=== PATIENT | female | born 1960 | race Caucasian/White ===

== ENCOUNTER 2021-11-16 17:51 | Emergency (ER) | payer BC, SELFPAY ==
--- NOTE | ~2021-11-16 | CT_ITS ---
EXAMINATION: CT cervical spine wo con DATE: 11/16/2021 18:44 INDICATION: neck pain TECHNIQUE: Computed tomography (CT) of the cervical spine was performed without intravenous contrast. Automated exposure control and iterative reconstruction technique were employed. The dose-length pro duct was 395.07 mGy-cm. COMPARISON: None FINDINGS: Vertebral Body Alignment: Intact. Reversal of the normal cervical lordosis. Trace anterolisthesis of C3 on C4 and C7 on T1, presently on a degenerative basis. Craniocervical and atlantoaxial alignment: Moderate degenerative change. Alignment intact. Osseous structures/fracture: Uncomplicated appearing C5-C7 ACDF. No evidence of a lytic or blastic pr ocess in the visualized spine. No evidence of acute fracture. Cervical soft tissues: The paraspinal soft tissues planes are maintained. Degenerative changes: Severe degenerative disc disease at C4-5. Severe multilevel facet arthropathy. No severe central canal or neural foraminal narrowing. IMPRESSION: No acute fracture or traumatic malalignment in the cervical spine. Reviewed, dictated and finalized at location K.
[2021-11-16 17:54] VITALS: BP 155/95; PULSE 72; RESP 18; TEMP 36.9; O2SAT 98
--- NOTE | 2021-11-16 18:24 | ED.NECK ---
HPI - Neck Pain/Injury General Chief Complaint: Neck Pain/Injury Stated Complaint: fall, neck pain Time Seen by Provider: 11/16/21 17:57 History of Present Illness HPI Narrative: 61-year-old female presents to the emergency room for evaluation of neck injury. Patient states yesterday that she was in her garage and slipped on wet floor landing on her butt. Patient endorses pain to the right lateral neck, and is worse with movements. patient states when she landed whipped her neck backwards causing minimal pain. Patient states when she woke up this morning, she was unable to move her neck in any direction. Patient states that she asked her sister for soft c-collar to aid in immobilization. Patient states that she has taken 3 Aleve prior to arrival with no relief of symptoms. Patient does endorse a history of cervical neck fusion. Patient is demanding an MRI while here in the emergency room. Related Data Allergies Allergy/AdvReac Type Severity Reaction Status Date / Time No Known Allergies Allergy Unverified 10/11/17 12:55 Review of Systems Review of Systems: CONSTITUTIONAL: Denies fever, chills, or sweats. EYES: Denies visual changes, redness, or discharge. ENT: Denies rhinorrhea, congestion, sore throat, or otalgia. CARDIOVASCULAR: Denies chest pain, palpitations, or edema. RESPIRATORY: Denies cough or dyspnea. GASTROINTESTINAL: Denies abdominal pain, nausea, vomiting, or diarrhea. GENITOURINARY: Denies dysuria or hematuria. SKIN: Denies rash or itching. MUSCULOSKELETAL: Reports neck pain NEUROLOGIC: Denies headache, numbness, dizziness, or weakness. PSYCHIATRIC: Denies anxiety or depression. Exam Narrative: GENERAL: Well-appearing, well-nourished, no physical limitations, and in no acute distress. HEAD: Normocephalic, atraumatic. EYES: Conjunctivae normal, PERRLA and EOMI. ENT: External nose normal, Nares clear, no rhinorrhea or epistaxis. Mucous membranes moist. Oropharynx without tonsillar hypertrophy exudate or other lesions. External ears normal, bilateral TMs normal bilaterally NECK: Supple. No meningeal signs. No adenopathy or masses. No carotid bruits or JVD. Soft c-collar in place CHEST: Clear to auscultation. No respiratory distress. No wheezes rales or rhonchi. No tenderness. HEART: Regular rate and rhythm. No murmur heard. Normal peripheral pulses. BACK: Cervical spine: No midline tenderness, no bony abnormality, no step-offs. Limited range of motion with rotation and extension and flexion. Tenderness over the upper right trapezius muscle and right sternocleidomastoid muscle EXTREMITIES: Right shoulder: Limited range of motion with abduction and abduction due to pain, no bony tenderness over the scapula, humeral head, or clavicle. No soft tissue swelling noted, no ecchymosis, no bony abnormality noted SKIN: Warm, dry, no rash. No noted wounds NEURO: No focal deficits. Alert and oriented x3. MAEW. CN's II-XI intact bilaterally, normal gait PSYCH: Cooperative. Normal mood and affect. Course Course Emergency Course: 1829: During the course of the evaluation, patient appeared to be agitated with questioning and with the physical exam. Patient refused to x-rays, and CAT scan. Patient was demanding an MRI stating that that would give the most amount of information. While I agree an MRI would be beneficial, I explained to the patient that obtaining an MRI for soft tissue injury is not appropriate at this time. Patient was refusing muscle relaxers. Patient and her threatened to leave the emergency room and go to another hospital in hopes of getting an MRI. Vital Signs Vital signs: Vital Signs Temperature 36.9 C 11/16/21 17:54 Pulse Rate 72 11/16/21 17:54 Respiratory Rate 18 11/16/21 17:54 Blood Pressure 155/95 H 11/16/21 17:54 Pulse Oximetry 98 11/16/21 17:54 Temperature 36.9 C 11/16/21 17:54 Pulse Rate 72 11/16/21 17:54 Respiratory Rate 18 11/16/21 17:54 Blood Pressure 155/9
== END 2021-11-16 19:55 | disposition home or self-care (01) ==
PROVIDERS: Emergency Provider Nurse Practitioner Family; PCP Internal Medicine Endocrinology, Diabetes & Metabolism
DX: S16.1XXA Strain of muscle, fascia and tendon at neck level, initial encounter (principal); W01.0XXA Fall on same level from slipping, tripping and stumbling without subsequent striking against object, initial encounter
CPT/HCPCS: 72125; 99284